=== PATIENT | male | born 1990 | race Hispanic/Latino ===

== ENCOUNTER 2023-02-20 18:27 | Emergency (ER) | payer OTHER ==
[~2023-02-20] VITALS: Ht 180.3 cm; Wt 82.1 kg
[2023-02-20 18:34] VITALS: BP 125/72; PULSE 117; RESP 16
[2023-02-20] MEDS ORDERED: AZITHROMYCIN 250 MG TABLET PO ONE (19:00)
[2023-02-20] MEDS ORDERED: CEFTRIAXONE 1G VIAL IM ONE (19:00)
[2023-02-20] MEDS ORDERED: LIDOCAINE HCL 1% 20 ML VIAL ONE (19:01)
[2023-02-20] MEDS ORDERED: DOXY100C5 PO (19:01)
== END 2023-02-20 19:41 | disposition home or self-care (01) ==
LOC: EDH 18:27
DX: N48.89 Other specified disorders of penis (principal); Z20.2 Contact with and (suspected) exposure to infections with a predominantly sexual mode of transmission
CPT/HCPCS: 99283; 87797; 87486; 96372; J0696

== ENCOUNTER 2023-05-14 13:50 | Emergency (ER) | payer BC, OTHER ==
[~2023-05-14] VITALS: Ht 180.3 cm; Wt 95.3 kg
[~2023-05-14 13:50] MED LIST: DOXY100C5 PO
[2023-05-14 14:44] VITALS: BP 140/97; PULSE 88; RESP 20; O2SAT 100
[2023-05-14 15:25] LABS: HEMATOCRIT 35.6 % (42-54); MEAN CORPUSCULAR HGB CONC 34.8 g/dL (32.0-36.0); RED BLOOD CELL COUNT(AUTO) 3.87 MIL/uL (4.50-6.20); RED CELL DISTRIBUTION WIDTH 12.6 % (11.0-15.5); WHITE BLOOD COUNT (AUTO) 7.2 K/uL (4.8-10.8)
[2023-05-14 15:40] LABS: CREATININE 1.1 mg/dL (0.5-1.5); POTASSIUM 3.3 mmol/L (3.5-5.1)
[2023-05-14] MEDS ORDERED: IBUP-2077 PO (17:26)
[2023-05-14] MEDS ORDERED: CLIN-141 PO (17:26)
[2023-05-14] MEDS: IBUPROFEN 800 MG TAB PO ONE ×2 (17:42→17:55)
== END 2023-05-14 18:20 | disposition home or self-care (01) ==
LOC: EDH 13:50
DX: L03.115 Cellulitis of right lower limb (principal)
CPT/HCPCS: 36415; 73630; 80048; 84550; 85027

== ENCOUNTER 2024-11-21 20:03 | Emergency (ER) | payer BC ==
[~2024-11-21] VITALS: Ht 180.3 cm; Wt 98.4 kg
[~2024-11-21 20:03] MED LIST changes: +CLIN-141 PO; +IBUP-2077 PO
[2024-11-21 20:24] VITALS: BP 151/104; PULSE 103; RESP 18; TEMP 97.4; O2SAT 98
--- NOTE | 2024-11-21 20:26 | ERN ---
ED Note History of Present Illness Stated Complaint: C/O POSSIBLE SPIDER BITE TO ABD X 4 DAYS Chief Complaint: Insect Bite Time Seen by MD: 20:08 Dictation: PATIENT IS A 34-YEAR-OLD MALE HERE WITH COMPLAINTS OF A POSSIBLE SPIDER BITE TO HIS LOWER ABDOMEN WITH ERYTHEMA AND REDNESS ONSET FOUR DAYS PRIOR TO ARRIVAL NO FEVER NO CHILLS NO NAUSEA VOMITING. STATES HE DID NOT GO SEE HIS PRIMARY CARE DOCTOR. WHEN PATIENT WAS EXAMINED IN TRIAGE, IT WAS NOTED THAT HE DOES SHAVE HIS ABDOMINAL HAIR. Allergies: Coded Allergies: No Known Drug Allergies (Unverified Allergy, Unknown, 02/20/23) Home Meds Active Scripts Ibuprofen (Ibuprofen 800 mg Tab) 800 Mg Tab, 800 MG PO Q8H PRN for fever or pain, #30 TAB 0 Refills Prov:FRANCO BROWN NP 05/14/23 Clindamycin HCl (Clindamycin HCl) 300 Mg Capsule, 1 CAP PO QID for 10 Days, #40 CAP 0 Refills Prov:FRANCO BROWN [employer] 05/14/23 Doxycycline Hyclate (Doxycycline Hyclate) 100 Mg Capsule, 100 MG PO BID for 14 Days, #28 CAP Prov:FRANCO BROWN [employer] 02/20/23 Past Medical History Past Medical History: No Pertinent History Surgical History: None Social History: ETOH RN Note Reviewed/Agreed w/PFSH: Yes Review of System Dictation CONSTITUTIONAL: NEGATIVE EXCEPT FOR HPI HEAD/FACE: NEGATIVE EXCEPT FOR HPI EENT: NEGATIVE EXCEPT FOR HPI RESPIRATORY: NEGATIVE EXCEPT FOR HPI GASTROINTESTINAL/ABDOMINAL: NEGATIVE EXCEPT FOR HPI GENITOURINARY: NEGATIVE EXCEPT FOR HPI MUSCULOSKELETAL: NEGATIVE EXCEPT FOR HPI INTEGUMENTARY: NEGATIVE EXCEPT FOR HPI ABDOMINAL WALL ERYTHEMA NEUROLOGICAL/PSYCH: NEGATIVE EXCEPT FOR HPI HEMATOLOGIC/LYMPHATIC: NEGATIVE EXCEPT FOR HPI ALL SYSTEMS NEGATIVE, EXCEPT NOTED ABOVE. 13 POINT REVIEW OF SYSTEMS ASSESSED AND ALL NEGATIVE EXCEPT FOR ABOVE. Initial Vital Sign VS Vital Signs Date Time Temp Pulse Resp B/P (MAP) Pulse Ox O2 Delivery O2 Flow Rate FiO2 11/21/24 20:05 97.9 104 20 138/84 98 Room Air Physical Exam Dictation VITAL SIGNS REVIEWED GENERAL APPEARANCE: ALERT, ORIENTED X 3, NO ACUTE DISTRESS, WELL DEVELOPED, NOURISHED. HEAD AND FACE: NON-TRAUMATIC. EYES: PERRL, PINK CONJUNCTIVAS, EYELID NO TRAUMA, ANTERIOR CHAMBER WITH ARCUS SENILIS. EARS: PINNAS INTACT AND NO SIGNS OF TRAUMA OR ERYTHEMA EAR CANALS CLEAR AND NO DISCHARGE TM NO ERYTHEMA NOSE: NO DISCHARGE, NO BLEEDING. OROPHARYNX: MOUTH NORMAL, TONGUE PINK, PHARYNX CLEAR,NO ERYTHEMA, TONSILS NO EXUDATES, NO ABSCESSES NOTED, MUCOUS MEMBRANE MOIST NECK: SUPPLE, NON-TENDER, NO THYROMEGALY, NO MASSES, NO JVD, NO BRUITS BREAST:DEFERRED CHEST:NO TENDERNESS, NO CREPITUS, NO PARADOXICAL MOVEMENT, NO RETRACTIONS LUNGS:CLEAR, WELL-VENTILATED, SYMMETRIC, NO RALES, NO WHEEZING, NO RHONCHI, NO STRIDOR, GOOD BREATH SOUNDS BILATERALLY HEART: REGULAR RATE, REGULAR RHYTHM, NO MURMUR, NO GALLOPS VASCULAR: NO PERIPHERAL EDEMA, ABDOMEN: SOFT, POSITIVE BOWEL SOUNDS, NONDISTENDED, NO GUARDING, NONTENDER, NO REBOUND, NO MASSES NO HEPATOMEGALY, NO SPLENOMEGALY, NO BURDICK'S SIGN, NO HERNIAS. RECTAL: DEFERRED GENITAL: DEFERRED NEUROLOGICAL: NORMAL SPEECH, MOTOR FUNCTION INTACT, SENSORY FUNCTION INTACT MUSCULOSKELETAL: NECK NONTENDER, FULL RANGE OF MOTION, BACK NONTENDER, FULL RANGE OF MOTION, EXTREMITIES: NONTENDER, FULL RANGE OF MOTION SKIN: COLOR PINK, DRY, PATIENT HAS A INFECTED HAIR FOLLICLE WITH SURROUNDING ERYTHEMA TO LOWER ABDOMEN. PATIENT DOES SHAVE HIS LOWER ABDOMEN LYMPHATIC: DEFERRED Results (Laboratory/Radiology) Labs Reviewed?: Yes ED Course ED Course Orders Procedure Category Date Status Time Ibuprofen 800 Mg Tab PHA 11/21/24 Transmitted (Motrin) 20:30 Clindamycin 150mg Cap PHA 11/21/24 Transmitted (Cleocin 150mg Cap 20:30 Vital Signs Date Time Temp Pulse Resp B/P (MAP) Pulse Ox O2 Delivery O2 Flow Rate FiO2 11/21/24 20:05 97.9 104 20 138/84 98 Room Air 2020/NO LABS OR IMAGING INDICATED. PATIENT WILL BE TREATED FOR EARLY CELLULITIS FROM INFECTED HAIR FOLLICLE. Medical Decision Making MDM MEDICAL DECISION-MAKING BASED ON EXAMINATION AND HPI. PATIENT WAS INSTRUCTED TO STOP SHAVING HIS ABDOMINAL WALL HERE. HE WAS LOADED WITH CLINDAMYCIN 600 MG AND IBUPROFEN FOR PAIN TOLD SEE DR. FELTON IN THE NEXT 1-2 DAYS. DX & DISP Disposition: Discharge Departure Impression: Primary Impression: Folliculitis barbae Additional Impression: Cellulitis, abdominal wall Condition: Stable Scripts Clindamycin HCl (Clindamycin HCl) 300 Mg Capsule 1 CAP PO QID for 10 Days, #40 CAP 0 Refills Prov: FRANCO BROWN [employer] 11/21/24 Additional Instructions: FOLLOW-UP WITH PRIMARY CARE PROVIDER IN 1 TO 2 DAYS. TAKE MEDICATIONS DIRECTED HERE IN THE EMERGENCY ROOM. OKAY TO CONTINUE HOME MEDICATIONS UNLESS OTHERWISE DISCUSSED DURING YOUR VISIT IN THE EMERGENCY ROOM TODAY. RETURN TO YOUR NEAREST EMERGENCY ROOM IF SYMPTOMS WORSEN OR IF THERE IS NO IMPROVEMENT. CALL 911 IF YOU NEED IMMEDIATE ASSISTANCE. TAKE TYLENOL OR MOTRIN [id number] NEEDED AND IF NO CONTRAINDICATIONS ARE PRESENT. INCREASE ORAL HYDRATION. A WOUND CULTURE OR URINE CULTURE WAS ORDERED HERE IN THE EMERGENCY ROOM DEPARTMENT PLEASE FOLLOW-UP WITH PRIMARY CARE PROVIDER AND ADVISE THEM TO GET REPEAT PORTS FROM OUR FACILITY. IF YOU HAD ANY CHAVA WRAP/SPLINTS THAT WERE APPLIED HERE, PLEASE DO NOT REMOVE THEM UNTIL YOU SEE YOUR PRIMARY CARE OR SPECIALTY. TAKE ANTIBIOTICS DIRECTED UNTIL GONE. FOLLOW UP WITH YOUR PRIMARY CARE DOCTOR IN THE NEXT 1-2 DAYS AND STRONGLY SUGGEST STOPPING SHAVING OF YOUR LOWER ABDOMINAL AREA. Referrals: NONE (PCP) Time of Disposition: 20:25 I have reviewed the case, and I agree with, Diagnosis and Plan FRANCO BROWN NP Nov 21, 2024 20:26
[2024-11-21] MEDS: CLINDAMYCIN 150 MG CAP PO ONE (20:33)
== END 2024-11-21 20:36 | disposition home or self-care (01) ==
LOC: EDH 20:03
DX: L03.311 Cellulitis of abdominal wall (principal); L73.8 Other specified follicular disorders; W57.XXXA Bitten or stung by nonvenomous insect and other nonvenomous arthropods, initial encounter
CPT/HCPCS: 99283